=== PATIENT | female | born 1965 | race Caucasian/White ===

== ENCOUNTER 2016-10-30 09:48 | Day surgery (SDC) | payer BC ==
[~2016-10-30] VITALS: Ht 154.9 cm; Wt 80.3 kg
[2016-10-30] MEDS ORDERED: NO MEDS (10:45)
[2016-10-30 11:05] VITALS: BP 140/83; PULSE 62; RESP 22
--- NOTE | 2016-10-30 11:33 | OPPN ---
Date/Time of Note Date/Time of Note DATE: 10/30/16 TIME: 11:32 Operative Report Preoperative Diagnosis Screening colonoscopy Postoperative Diagnosis Small cecal polyp was removed Operation/Procedure Performed Colonoscopy and biopsy Provider: TAHIR RAPP MD Anesthesia Type: moderate sedation Estimated blood loss: none Transfusion Required: no Specimens Biopsy cecal polyp Grafts/Implants: none Complications: no TAHIR RAPP MD Oct 30, 2016 11:33
[2016-10-30] MEDS ORDERED: FENTAnyl 50 MCG/ML VIAL ONE (11:47)
[2016-10-30] MEDS ORDERED: MIDAZOLAM 1 MG/ML 2 ML INJ ONE ×2 (11:47)
[2016-10-30 11:54] VITALS: BP 116/78; PULSE 56; RESP 14
--- NOTE | 2016-10-30 13:07 | GILP ---
DATE OF PROCEDURE: 10/30/2016 PROCEDURE PERFORMED: Colonoscopy and biopsy. SURGEON: Theresa Madison MD. PREOPERATIVE DIAGNOSIS: Screening colonoscopy. POSTOPERATIVE DIAGNOSES: 1. Colonoscopy all the way to the cecum. 2. Small cecal polyp was removed with biopsy forceps. 3. Internal hemorrhoids. INDICATION: Ms. Wendy Thompson is a 51-year-old female patient who was scheduled for screening colonoscopy. The procedure and possible complications were well explained to the patient. She understood and consented to the procedure. DESCRIPTION OF PROCEDURE: Under the influence of fentanyl and Versed, the colonoscope was carefully introduced in the rectum, and under direct vision, it was advanced all the way to the cecum. FINDINGS: The patient had a small cecal polyp and it was removed using the biopsy forceps. She was noted to have internal hemorrhoids. She tolerated the procedure very well, and there was no complication from the procedure. At the end of procedure, she was awake with stable vital signs and she was discharged home in the care of her family. IMPRESSION: 1. Colonoscopy all the way to cecum. 2. Small cecal polyp was removed using the biopsy forceps. 3. Internal hemorrhoids. PLAN: 1. Await histopathology report. 2. Next screening colonoscopy in 10 years. Dictated By: MD SUDHIR Phillips/korin/cal /Document#: [id number]
== END 2016-10-30 15:56 | disposition home or self-care (01) ==
LOC: GIL 09:48
PROVIDERS: ATTEND Internal Medicine Gastroenterology
DX: Z12.11 Encounter for screening for malignant neoplasm of colon (principal); D12.0 Benign neoplasm of cecum; K64.8 Other hemorrhoids
CPT/HCPCS: 45380; 88305; J2250; J3010; Z7610

== ENCOUNTER 2017-02-28 14:38 | Emergency (ER) | END 2017-02-28 16:18 | disposition home or self-care (01) ==